=== PATIENT | female | born 1985 ===

== ENCOUNTER 2016-11-12 08:48 | Emergency (ER) | payer OTHER ==
[2016-11-12 09:03] VITALS: RESP 18; TEMP 98.5; O2SAT 98
[2016-11-12] MEDS ORDERED: Fluorescein 1 mg Ophthalmic Strip OD ONE (09:29)
[2016-11-12] MEDS ORDERED: Tetracaine 0.5% Ophth (OR ONLY) OD ONE (09:30)
[2016-11-12] MEDS ORDERED: Fluorescein 1 mg Ophthalmic Strip ONE (09:44)
[2016-11-12] MEDS ORDERED: Tetracaine 0.5% Ophth (OR ONLY) ONE (09:44)
[2016-11-12] MEDS ORDERED: Naproxen 550 mg Tab PO STA (10:06)
--- NOTE | 2016-11-12 10:08 | C.PDOC ---
History Of Present Illness 31 y/o female wit Hx of Keratoconus presents to ED with complaints of right eye pain and redness since this morning 4am when she woke up. Patient wears corrective hard lenses and her ophtamologist is in [place]. Patient denies trauma, injury to eye, fever, discharge, rash or any other complaints at this time. Time Seen by Provider: 11/12/16 09:06 Chief Complaint (Nursing): Eye Problem History Per: Patient History/Exam Limitations: no limitations Onset/Duration Of Symptoms: Days Past Medical History Reviewed: Historical Data, Nursing Documentation, Vital Signs Vital Signs: Last Vital Signs Temp 98.5 F 11/12/16 09:00 Pulse 71 11/12/16 10:15 Resp 18 11/12/16 10:15 BP 122/75 11/12/16 10:15 Pulse Ox 98 11/12/16 10:44 - Medical History PMH: Asthma Family History: States: Unknown Family Hx - Social History Hx Alcohol Use: No Hx Substance Use: No - Immunization History Hx Tetanus Toxoid Vaccination: No Hx Influenza Vaccination: No Hx Pneumococcal Vaccination: No Review Of Systems Except As Marked, All Systems Reviewed And Found Negative. Constitutional: Negative for: Fever, Chills Eyes: Positive for: Pain, Redness. Negative for: Vision Change Skin: Negative for: Rash Neurological: Negative for: Headache Physical Exam - Physical Exam Appears: Other (In mild pain) Skin: Warm, No Dry, No Rash Head: Atraumatic, Normacephalic Eye(s): bilateral: Normal Inspection, PERRL, EOMI, Other (Cone appearance on right cornea, Fluorescein uptake center of cornea but no abrasions or ulcerations, conjuctiva and sclera injected) Oral Mucosa: Moist Cardiovascular: Rhythm Regular, No Murmur Respiratory: Normal Breath Sounds, No Rales, No Rhonchi, No Wheezing ED Course And Treatment O2 Sat by Pulse Oximetry: 98 (RA) Pulse Ox Interpretation: Normal Medical Decision Making Medical Decision Making: Patient was given pain medication and D/C with eye drops and advised to follow up with opthamologist tomorrow. Disposition Counseled Patient/Family Regarding: Studies Performed, Diagnosis, Need For Followup, Rx Given - Disposition Referrals: Donte Wong MD [Staff Provider] - Disposition: HOME/ ROUTINE Disposition Time: 10:10 Condition: STABLE Additional Instructions: FOLLOW UP WITH YOUR EYE DOCTOR BY TOMORROW DO NOT WEAR CONTACT LENSES UNTIL YOUR EYE DOCTOR TELLS YOU RETURN TO ER IF SYMPTOMS WORSEN Prescriptions: Naproxen [Naprosyn Tab] 375 mg PO BID PRN #20 tab PRN Reason: pain Tobramycin 0.3% [Tobrex 0.3% Ophth Soln] 1 drop OP Q6 #1 bottle Instructions: Eye Pain (ED) Forms: Work Excuse Print Language: IRISH - POA Present On Arrival: None - Clinical Impression Clinical Impression: Keratoconus of right eye - Scribe Statement The provider has reviewed the documentation as recorded by the Bellibrobin Qureshi All medical record entries made by the Bellibrobin were at my direction and personally dictated by me. I have reviewed the chart and agree that the record accurately reflects my personal performance of the history, physical exam, medical decision making, and the department course for this patient. I have also personally directed, reviewed, and agree with the discharge instructions and disposition.
[2016-11-12] MEDS ORDERED: Naproxen 550 mg Tab PO ONE (10:10)
[2016-11-12 10:16] VITALS: BP 122/75; PULSE 71
== END 2016-11-12 10:17 | disposition home or self-care (01) ==
LOC: C.ER 08:48
DX: H18.601 Keratoconus, unspecified, right eye (principal)

== ENCOUNTER 2017-06-10 10:56 | Emergency (ER) | payer SELFPAY ==
[2017-06-10 11:37] VITALS: RESP 18
--- NOTE | 2017-06-10 13:23 | C.PDOC ---
History Of Present Illness Pt states she accidentally scratched her right eye today. Time Seen by Provider: 06/10/17 13:13 Chief Complaint (Nursing): Eye Problem History Per: Patient Onset/Duration Of Symptoms: Hrs (this morning) Current Symptoms Are (Timing): Still Present Injury To Eye?: Yes Severity: Moderate Quality: "Pain" Wears Contact Lens?: Yes Associated Symptoms: Pain Additional History Per: Prior Records Past Medical History Reviewed: Historical Data, Nursing Documentation, Vital Signs Vital Signs: Last Vital Signs Temp 98.1 F 06/10/17 11:31 Pulse 60 06/10/17 11:31 Resp 18 06/10/17 11:31 BP 119/76 06/10/17 11:31 Pulse Ox 97 06/10/17 11:31 - Medical History PMH: Asthma Family History: States: Unknown Family Hx - Social History Hx Alcohol Use: No Hx Substance Use: No - Immunization History Hx Tetanus Toxoid Vaccination: No Hx Influenza Vaccination: No Hx Pneumococcal Vaccination: No Review Of Systems Except As Marked, All Systems Reviewed And Found Negative. Eyes: Positive for: Pain. Negative for: Eyelid Inflammation Gastrointestinal: Negative for: Nausea, Vomiting Musculoskeletal: Negative for: Neck Pain Skin: Negative for: Rash Neurological: Negative for: Headache Physical Exam - Physical Exam Appears: Non-toxic, No Acute Distress Skin: Normal Color, Warm, Dry, No Rash Head: Atraumatic, Normacephalic Eye(s): bilateral: PERRL, EOMI, right: Other (Corneal abrasion) Neck: Normal ROM, Supple Extremity: Normal ROM Neurological/Psych: Oriented x3, Normal Cranial Nerves, Normal Motor, Normal Sensation ED Course And Treatment O2 Sat by Pulse Oximetry: 97 Pulse Ox Interpretation: Normal Disposition Counseled Patient/Family Regarding: Diagnosis, Need For Followup, Rx Given - Disposition Referrals: Chino Young MD [Staff Provider] - Disposition: HOME/ ROUTINE Disposition Time: 13:26 Condition: STABLE Additional Instructions: Follow up with an Housekeeper Manager (eye doctor) within 1-2 days. Do not wear your contact lens until fully healed. Return to the ER if you develop worsening of symptoms or if you have any other concerns. Prescriptions: Tobramycin 0.3% [Tobrex 0.3% Ophth Soln] 2 drop OP QID #1 bottle Instructions: Corneal Abrasion (ED) - Clinical Impression Clinical Impression: Corneal abrasion, right
[2017-06-10 13:42] VITALS: BP 105/67; PULSE 75; TEMP 98.3; O2SAT 99
== END 2017-06-10 13:45 | disposition home or self-care (01) ==
LOC: C.ER 10:56
DX: S05.01XA Injury of conjunctiva and corneal abrasion without foreign body, right eye, initial encounter (principal); X58.XXXA Exposure to other specified factors, initial encounter; Y92.9 Unspecified place or not applicable